=== PATIENT | male | born 1950 | race Caucasian/White ===

== ENCOUNTER 2020-10-26 08:32 | Day surgery (SDC) | payer MEDICARE, OTHER ==
[~2020-10-26 08:32] MED LIST: Ak-Dilate OPHTHALMIC*** 1.065 ML, Cyclogyl 1% OPHTH SOL 5 ML 1.065 ML, GATIFLOXACIN 0.5... OP ONE; BETADINE 5% OPHTHALMIC 30 ML OP ONE; Lactated Ringers 1,000 ML IV SCH; NON-FORMULARY ITEM OP ONE; TETRACAINE 0.5% STERI-UNIT SOL OP ONE; cefUROXime sodium 0.005 GM in Sodium Chloride Flush 30 ML*** 0.5 ML IJ SCH
[2020-10-26] MEDS ORDERED: Lactated Ringers 1,000 ML IV ONE (08:44)
[2020-10-26] MEDS ORDERED: ACETAZOLAMIDE 250 MG TABLET PO ONE (09:00)
[2020-10-26] MEDS ORDERED: Zofran 4 MG/2 ML VIAL IV PRN (09:00)
[2020-10-26] MEDS ORDERED: LIDOCAINE HCL 1% 50 MG/5 ML VL PF IJ ONE (10:00)
[2020-10-26] MEDS ORDERED: Epinephrine Preservative Free 1 MG/ML INTRAOP ONE (10:00)
[2020-10-26] MEDS ORDERED: DIPRIVAN 200 MG/20 ML IV ONE (10:06)
[2020-10-26 11:34] VITALS: BP 146/78; PULSE 65; O2SAT 98
== END 2020-10-26 11:45 | disposition home or self-care (01) ==
LOC: SDC 08:32
PROVIDERS: ATTEND Ophthalmology
DX: H25.811 Combined forms of age-related cataract, right eye (principal)
CPT/HCPCS: C1780; J0171; J2001; J2704; A9270-GY